=== PATIENT | female | born 1975 | race Caucasian/White ===

== ENCOUNTER → 2017-02-08 | Outpatient (CLI) | payer MEDICARE, MEDICAID | END | disposition home or self-care (01) | LOC: EDT 09:22 | DX: E11.9 Type 2 diabetes mellitus without complications (principal); Z71.3 Dietary counseling and surveillance ==

== ENCOUNTER 2017-03-02 18:47 | Emergency (ER) | payer MEDICARE, MEDICAID ==
--- NOTE | 2017-03-03 06:14 | ER ---
ADMIT: 03/02/2017 RM/LOC: ER [facility] MR#: [id number] [id number] [place], [place] [id number] [address] [facility] [address] [place] [address] Emergency Room Report SEX: F AGE: 42 : 1975 DATE: 03/02/2017 The patient is a 42-year-old female with type 2 diabetes, sarcoidosis, chronic pain, presents with nausea, vomiting, and diarrhea that began Sunday. Recently put on NovoLog and Lantus with marked improvement in blood sugars. Denies any travel or exposure to gastroenteritis. Exam remarkable for nontoxic, afebrile female. Otherwise, benign exam. WBC 10.4. Troponin less than 0.015. Glucose 134. CRP 1.1. Lactic 1.1. UA negative. The patient was given 2 L normal saline, Zofran, oral challenge and road tested well. Home with Zofran 8 mg ODT t.i.d. p.r.n. #30. Clear liquid diet. Advance as tolerated. Follow up Dr. Chaney as needed. Stool studies pending. Mark Khan MD/ jany JOB #: [id number] CC: Jone June MD, Attending Physician Jerman Chaney MD, Family Physician Jerman Chaney MD
== END 2017-03-02 21:45 | disposition home or self-care (01) ==
LOC: ER 18:47
DX: R11.2 Nausea with vomiting, unspecified (principal); R19.7 Diarrhea, unspecified; E11.9 Type 2 diabetes mellitus without complications; J45.909 Unspecified asthma, uncomplicated; Z90.710 Acquired absence of both cervix and uterus; Z79.899 Other long term (current) drug therapy